=== PATIENT | female | born 1985 | race Caucasian/White ===

== ENCOUNTER → 2016-06-01 | Outpatient (CLI) | payer OTHER ==
--- NOTE | 2016-06-01 14:41 | KCIC ---
PROCEDURE PA chest. HISTORY Positive PPD. COMPARISON No comparison. FINDINGS The cardiomediastinal silhouette is normal. Lungs are clear. No pleural effusion or pneumothorax. No acute bone abnormality. IMPRESSION No acute cardiopulmonary process. Electronically signed by: Yovani Felix MD (Jun 01, 2016 14:41:11)
== END | disposition home or self-care (01) ==
LOC: KCIC 13:00
PROVIDERS: ATTEND Family Medicine
DX: R76.11 Nonspecific reaction to tuberculin skin test without active tuberculosis (principal)
CPT/HCPCS: 71010